=== PATIENT | female | born 1995 | race Two or more races ===

== ENCOUNTER 2023-06-12 18:12 | Emergency (ER) | payer OTHER ==
[2023-06-12 18:58] VITALS: BP 124/86; PULSE 75; RESP 18; TEMP 98.2; BMI 35.5
[2023-06-12] MEDS ORDERED: ACETAMINOPHEN 500 MG TABLET (FP) PO ONE (21:08)
[2023-06-12] MEDS ORDERED: ACETAMINOPHEN 500 MG TABLET (FP) ONE (21:29)
== END 2023-06-12 23:38 | disposition home or self-care (01) ==
LOC: JER 18:12
DX: M25.561 Pain in right knee (principal); M79.631 Pain in right forearm; V43.52XA Car driver injured in collision with other type car in traffic accident, initial encounter; Y92.410 Unspecified street and highway as the place of occurrence of the external cause
CPT/HCPCS: 73070-TC-RT-FY; 73090-TC-RT-FY; 73110-TC-RT-FY; 73564-TC-RT-FY; 99284-25